=== PATIENT | female | born 1945 | race Caucasian/White ===

== ENCOUNTER 2017-12-02 08:49 | Outpatient (CLI) | payer MEDICARE | END 2017-12-02 08:50 | disposition home or self-care (01) | LOC: BICMAMMO 08:49 | PROVIDERS: ATTEND Family Medicine | DX: Z12.31 Encounter for screening mammogram for malignant neoplasm of breast (principal) | CPT/HCPCS: 77063; 77067 ==

== ENCOUNTER 2019-07-15 08:26 | Outpatient (CLI) | payer MEDICARE ==
--- NOTE | 2019-07-15 09:09 | MMO ---
Bilateral MAMMO Bilat Screen [facility]. CLINICAL HISTORY: Patient is 74 years old and is seen for screening. The patient has no family history of breast cancer. The patient has no personal history of cancer. VIEWS: The views performed were: bilateral craniocaudal with tomosynthesis and bilateral mediolateral oblique with tomosynthesis. FILMS COMPARED: The present examination has been compared to prior imaging studies performed at [facility] on 08/10/2014, 08/14/2015, 11/12/2016 and 12/02/2017. This study has been interpreted with the assistance of computer-aided detection. MAMMOGRAM FINDINGS: The breasts are heterogeneously dense, which could obscure a lesion on mammography. There are no suspicious masses, suspicious calcifications, or new areas of architectural distortion. IMPRESSION: THERE IS NO MAMMOGRAPHIC EVIDENCE OF MALIGNANCY. A ROUTINE FOLLOW-UP MAMMOGRAM IN 1 YEAR IS RECOMMENDED. THE RESULTS OF THIS EXAM WERE SENT TO THE PATIENT. ACR BI-RADS Category 1 - Negative MAMMOGRAPHY NOTE: 1. A negative mammogram report should not delay a biopsy if a dominant of clinically suspicious mass is present. 2. Approximately 10% to 15% of breast cancers are not detected by mammography. 3. Adenosis and dense breasts may obscure an underlying neoplasm. Reported by: INES SHARMA MD Electonically Signed: [id number]
--- NOTE | 2019-07-15 11:14 | BD ---
BONE DENSITOMETRY USING DEXA: HISTORY: Postmenopausal screening for osteoporosis. FINDINGS: Lumbar Spine: BMD (g/cm2) L1 0.910 T-Score: -0.7 Z-Score: 1.4 L2 0.895 T-Score: -1.2 Z-Score: 1.1 L3 0.793 T-Score: -2.6 Z-Score: -0.2 L4 0.870 T-Score: -1.7 Z-Score: 0.8 L1-L4 0.870 T-Score: -1.6 Z-Score: 0.8 Femoral Neck: 0.666 T-Score: -1.6 Z-Score: 0.4 Total Femur: 0.858 T-Score: -0.7 Z-Score: 1.1 There has been interval improvement of 3.4% of the BMD of the lumbar spine and an improvement of 4.2% in the BMD of the proximal femur since 08/06/2011. The 10-year fracture risk for a major osteoporotic fracture is 11% and for a hip fracture is 2.3%. Impression: Osteopenia. POS: ED
== END 2019-07-15 08:27 | disposition home or self-care (01) ==
LOC: BICMAMMO 08:26
PROVIDERS: ATTEND Family Medicine
DX: Z12.31 Encounter for screening mammogram for malignant neoplasm of breast (principal); Z13.820 Encounter for screening for osteoporosis; M85.89 Other specified disorders of bone density and structure, multiple sites
CPT/HCPCS: 77063; 77067; 77080

== ENCOUNTER 2020-09-13 14:32 | Outpatient (CLI) | payer MEDICARE, OTHER | END 2020-09-13 14:33 | disposition home or self-care (01) | LOC: BICMAMMO 14:32 | PROVIDERS: ATTEND Family Medicine | DX: Z12.31 Encounter for screening mammogram for malignant neoplasm of breast (principal) | CPT/HCPCS: 77063; 77067 ==

== ENCOUNTER 2021-09-17 13:44 | Outpatient (CLI) | payer MEDICARE, OTHER | END 2021-09-17 13:45 | disposition home or self-care (01) | LOC: BICMAMMO 13:44 | PROVIDERS: ATTEND Family Medicine | DX: Z12.31 Encounter for screening mammogram for malignant neoplasm of breast (principal) | CPT/HCPCS: 77063; 77067 ==

== ENCOUNTER 2021-12-20 09:40 | Emergency (ER) | payer MEDICARE, OTHER ==
[2021-12-20] MEDS ORDERED: Ondansetron ODT 4 MG TAB ONE (11:41)
[2021-12-20] MEDS ORDERED: Morphine 4 MG/ML VIAL ONE (11:41)
[2021-12-20] MEDS ORDERED: Lidocaine 1% MPF 2 ML VIAL ONE (11:41)
[2021-12-20] MEDS ORDERED: Bupivacaine 0.25% 10 ML VIAL ONE (11:49)
== END 2021-12-20 12:58 | disposition home or self-care (01) ==
LOC: ERS 09:40
DX: S52.572A Other intraarticular fracture of lower end of left radius, initial encounter for closed fracture (principal); S52.612A Displaced fracture of left ulna styloid process, initial encounter for closed fracture; W18.30XA Fall on same level, unspecified, initial encounter; I10 Essential (primary) hypertension
CPT/HCPCS: 25605; 96372; J2270; Q0162; S0020

== ENCOUNTER 2021-12-21 13:30 | Emergency (ER) | payer MEDICARE, OTHER | END 2021-12-21 14:55 | disposition home or self-care (01) | LOC: ERS 13:30 | DX: I10 Essential (primary) hypertension (principal); M79.602 Pain in left arm | CPT/HCPCS: 99283 ==

== ENCOUNTER 2021-12-25 11:04 | Outpatient (CLI) | payer MEDICARE, OTHER | END 2021-12-25 11:05 | disposition home or self-care (01) | LOC: LABBT 11:04 | PROVIDERS: ATTEND Orthopaedic Surgery | DX: Z01.818 Encounter for other preprocedural examination (principal); Z20.822 Contact with and (suspected) exposure to COVID-19 | CPT/HCPCS: 87811; 93005; 93010 ==

== ENCOUNTER 2021-12-27 10:27 | Day surgery (SDC) | payer MEDICARE, OTHER ==
[2021-12-27] MEDS ORDERED: Sodium Chloride 0.9% 100 ML ONE (12:15)
[2021-12-27] MEDS ORDERED: CEFAZOLIN 2 GM VIAL ONE (12:15)
[2021-12-27] MEDS ORDERED: Dexamethasone 20 MG/5 ML VIAL ONE (12:32)
[2021-12-27] MEDS ORDERED: Ondansetron PF 4 MG/2 ML Vial ONE (12:32)
[2021-12-27] MEDS ORDERED: PROPOFOL 200 MG/20 ML VIAL ONE (12:32)
[2021-12-27] MEDS ORDERED: Lidocaine 1% MPF 2 ML VIAL ONE (12:32)
[2021-12-27] MEDS ORDERED: fentaNYL Citrate/PF 100 MCG/2 ML SYRINGE ONE ×2 (12:41→13:43)
[2021-12-27] MEDS ORDERED: Bupivacaine PF 0.5% 30 ML VIAL ONE (12:56)
[2021-12-27] MEDS ORDERED: EPINEPHrine 1 MG/ML AMP ONE (12:56)
[2021-12-27] MEDS ORDERED: HYDROcodone/Acetaminophen 5/325 mg Tablet ONE (14:29)
== END 2021-12-27 15:15 | disposition home or self-care (01) ==
LOC: SDC 10:27
PROVIDERS: ATTEND Orthopaedic Surgery
PROC: 0PSJ04Z Reposition Left Radius with Internal Fixation Device, Open Approach (ICD-10-PCS; principal; 2021-12-27)
DX: S52.532A Colles' fracture of left radius, initial encounter for closed fracture (principal); I10 Essential (primary) hypertension; E78.5 Hyperlipidemia, unspecified; M85.80 Other specified disorders of bone density and structure, unspecified site; Z87.891 Personal history of nicotine dependence; Z79.899 Other long term (current) drug therapy; W19.XXXA Unspecified fall, initial encounter
CPT/HCPCS: 25607; 73110; 76000; C1713 ×3; J0171; J0690; J1100; J2405; J2704; J3490; S0020

== ENCOUNTER 2023-09-10 10:24 | Outpatient (CLI) | payer MEDICARE, OTHER | END 2023-09-10 10:25 | disposition home or self-care (01) | LOC: BICMAMMO 10:24 | PROVIDERS: ATTEND Family Medicine | DX: Z12.31 Encounter for screening mammogram for malignant neoplasm of breast (principal) | CPT/HCPCS: 77063; 77067 ==

== ENCOUNTER 2025-01-31 10:42 | Outpatient (CLI) | payer MEDICARE, OTHER | END 2025-01-31 10:43 | disposition home or self-care (01) | LOC: BICMAMMO 10:42 | PROVIDERS: ATTEND Physician Assistant | DX: M81.0 Age-related osteoporosis without current pathological fracture (principal) | CPT/HCPCS: 77080 ==

== ENCOUNTER 2025-04-04 13:17 | Outpatient (CLI) | payer MEDICARE, OTHER | END 2025-04-04 13:18 | disposition home or self-care (01) | LOC: SCSMRI 13:17 | PROVIDERS: ATTEND Family Medicine | DX: F03.90 Unspecified dementia, unspecified severity, without behavioral disturbance, psychotic disturbance, mood disturbance, and anxiety (principal); R93.0 Abnormal findings on diagnostic imaging of skull and head, not elsewhere classified | CPT/HCPCS: 70551 ==